=== PATIENT | male | born 1990 | race Caucasian/White ===

== ENCOUNTER 2021-07-18 23:19 | Inpatient (IN) | payer SELFPAY ==
[2021-07-18 23:43] LABS: Analyzer IN Cardio ER; CO2 Tension 36.9 mmHg (35.0-45.0); Calcium, Ionized (arterial) 1.15 mmol/L (1.12-1.30); Carboxyhemoglobin (COHb) 0.5 gm% (0.0-3.0); Potassium - ABG Lab 3.96 mmol/L (3.70-5.30); pH, Arterial 7.35 (7.35-7.45)
[2021-07-18] MEDS ORDERED: Fentanyl 100 MCG/2 ML VIAL ONE (23:44)
[2021-07-18 23:59] LABS: ALV-art Gradient 141.375 mmHg (0-20); Puncture Site RRA
[2021-07-19] MEDS ORDERED: Ondansetron PF 4 MG/2 ML Vial IVP PRN (00:23)
[2021-07-19] MEDS ORDERED: Sodium Chloride 0.9% 1,000 ML IV SCH (00:30)
[2021-07-19] MEDS ORDERED: Propofol 1,000 MG/100 ML VIAL IV ONE (00:39)
[2021-07-19] MEDS ORDERED: Morphine 2 MG/ML VIAL SLOW IVP PRN (00:45)
[2021-07-19] MEDS ORDERED: Fentanyl BOLUS 250 ML IVPB PRN (00:45)
[2021-07-19] MEDS ORDERED: Propofol BOLUS 1,000 MG/100 ML VIAL IV PRN (00:45)
[2021-07-19] MEDS ORDERED: Ventilator Sedation Protocol 1 EACH FS SCH (00:45)
[2021-07-19] MEDS ORDERED: DISCONTINUE PREVIOUS NARCOTIC PAIN MEDICATIONS AND BENZODIAZEPINES FS SCH (00:45)
[2021-07-19 01:01] LABS: Anion Gap 12 mmol/L (10-20); BUN (Urea Nitrogen) 14 mg/dL (8.9-20.6); CK (CPK) 337 U/L (30-200); Calc. Creatinine Clearance 0 mL/min (70-130); Calcium 9.1 mg/dL (7.8-10.44); Carbon Dioxide 28 mmol/L (22-29); Chloride 107 mmol/L (98-107); Magnesium 2.1 mg/dL (1.6-2.6); Potassium 4.1 mmol/L (3.5-5.1); Sodium 143 mmol/L (136-145)
[2021-07-19 01:07] LABS: Glucose 44 mg/dL (70-105)
[2021-07-19] MEDS ORDERED: Dextrose 50% Abboject 50 ML SYRINGE ONE (01:08)
[2021-07-19] MEDS ORDERED: Dextrose 5% in Water 1,000 ML IV PRN (02:03)
[2021-07-19] MEDS ORDERED: Dextrose 50% Abboject 50 ML SYRINGE SLOW IVP PRN (02:03)
[2021-07-19 03:36] LABS: #Lymphocytes 1.1 thou/uL (1.20-3.40); #Monocytes 0.7 thou/uL (0.11-0.59); #Neutrophils 9.1 thou/uL (1.40-6.50); %Basophils 0.1 % (0.0-1.0); %Eosinophils 0.1 % (0.0-10.0); %Lymphocytes 9.6 % (21.0-51.0); %Monocytes 6.7 % (0.0-10.0); %Neutrophils 83.5 % (42.0-75.0); Hemoglobin 13.3 g/dL (14.0-18.0); Mean Corpuscular HGB CONC 33.7 g/dL (32.0-36.0); Mean Corpuscular Hemoglobin 29.2 pg (27.0-31.0); Mean Corpuscular Volume 86.9 fL (78.0-98.0); Mean Platelet Volume 7.8 fL (7.4-10.4); Platelet Count 214 thou/uL (130-400); RBC Distribution Width 12.5 % (11.5-14.5); Red Blood Cell (RBC) Count 4.53 mill/uL (4.70-6.10); White Blood Cell (WBC) Count 10.9 thou/uL (4.8-10.8)
[2021-07-19 03:40] LABS: SARS-CoV-2 NAA Rapid Test Not Detected (NotDetected)
[2021-07-19 03:45] LABS: Hemoglobin A1c 4.9 % (4.0-6.0)
[2021-07-19 03:57] LABS: ALT (SGPT) 72 U/L (8-55); AST (SGOT) 66 U/L (5-34); Alkaline Phosphatase 80 U/L (40-110); Anion Gap 11 mmol/L (10-20); BUN (Urea Nitrogen) 13 mg/dL (8.9-20.6); Bilirubin, Total 0.4 mg/dL (0.2-1.2); Calc. Creatinine Clearance 102 mL/min (70-130); Calcium 8.8 mg/dL (7.8-10.44); Carbon Dioxide 26 mmol/L (22-29); Chloride 107 mmol/L (98-107); Globulin 2.3 g/dL (2.4-3.5); Glucose 115 mg/dL (70-105); Magnesium 1.8 mg/dL (1.6-2.6); Potassium 4.4 mmol/L (3.5-5.1); Protein, Total 6.3 g/dL (6.0-8.3); Sodium 140 mmol/L (136-145)
[2021-07-19] MEDS: Lorazepam 2 MG/ML VIAL SLOW IVP PRN (07:23)
[2021-07-19] MEDS: Propofol 1,000 MG/100 ML VIAL IV PRN ×4 (07:23→22:01)
[2021-07-19] MEDS: Dextrose 5 % And 0.9 % NaCl 1,000 ML IV SCH ×3 (08:12→21:14)
[2021-07-19] MEDS: Enoxaparin Sodium 40 MG/0.4 ML SYRINGE SC SCH (08:51)
[2021-07-19] MEDS: Famotidine 20 MG TAB PO SCH ×2 (08:52→21:15)
[2021-07-19] MEDS ORDERED: Fentanyl CADD 100 ML ONE ×2 (10:15→23:11)
[2021-07-19] MEDS: Fentanyl CADD 100 ML IV SCH ×3 (10:19→23:22)
[2021-07-19 10:58] LABS: Base Excess (BEa) 0.2 mEq/L (-2.0 to +3.0); CO2 Tension 31.6 mmHg (35.0-45.0); Calcium, Ionized (arterial) 1.13 mmol/L (1.12-1.30); Carboxyhemoglobin (COHb) 0.3 gm% (0.0-3.0); Hemoglobin (Hb) 12.2 g/dL (14.0-18.0); O2 Tension (PaO2), arterial 172.5 mmHg (80.0-100.0); Potassium - ABG Lab 3.44 mmol/L (3.70-5.30); pH, Arterial 7.48 (7.35-7.45)
[2021-07-19 10:59] LABS: Puncture Site RRA
[2021-07-19] MEDS: Haloperidol Lactate 5 MG/ML VIAL IM SCH ×4 (14:43→21:14)
[2021-07-20] MEDS: Haloperidol Lactate 5 MG/ML VIAL IM SCH ×4 (00:30→14:48)
[2021-07-20] MEDS: Dextrose 5 % And 0.9 % NaCl 1,000 ML IV SCH ×4 (03:02→16:39)
[2021-07-20] MEDS: Propofol 1,000 MG/100 ML VIAL IV PRN ×3 (03:02→13:12)
[2021-07-20 05:49] LABS: #Eosinphils 0.1 thou/uL (0.0-0.7); #Lymphocytes 0.9 thou/uL (1.20-3.40); #Monocytes 0.5 thou/uL (0.11-0.59); #Neutrophils 4.8 thou/uL (1.40-6.50); %Basophils 0.1 % (0.0-1.0); %Eosinophils 1.4 % (0.0-10.0); %Lymphocytes 14.3 % (21.0-51.0); %Monocytes 7.6 % (0.0-10.0); %Neutrophils 76.6 % (42.0-75.0); Hemoglobin 11.3 g/dL (14.0-18.0); Mean Corpuscular HGB CONC 33.7 g/dL (32.0-36.0); Mean Corpuscular Hemoglobin 29.6 pg (27.0-31.0); Mean Corpuscular Volume 87.7 fL (78.0-98.0); Platelet Count 159 thou/uL (130-400); RBC Distribution Width 12.6 % (11.5-14.5); Red Blood Cell (RBC) Count 3.83 mill/uL (4.70-6.10); White Blood Cell (WBC) Count 6.2 thou/uL (4.8-10.8)
[2021-07-20 05:55] LABS: ALT (SGPT) 47 U/L (8-55); AST (SGOT) 31 U/L (5-34); Albumin 3.1 g/dL (3.5-5.0); Alkaline Phosphatase 63 U/L (40-110); Anion Gap 8 mmol/L (10-20); BUN (Urea Nitrogen) 9 mg/dL (8.9-20.6); Bilirubin, Total 0.6 mg/dL (0.2-1.2); Calc. Creatinine Clearance 113 mL/min (70-130); Calcium 7.9 mg/dL (7.8-10.44); Carbon Dioxide 23 mmol/L (22-29); Chloride 113 mmol/L (98-107); Glucose 116 mg/dL (70-105); Magnesium 1.5 mg/dL (1.6-2.6); Potassium 3.8 mmol/L (3.5-5.1); Protein, Total 5.1 g/dL (6.0-8.3); Sodium 140 mmol/L (136-145)
[2021-07-20] MEDS ORDERED: Dexmedetomidine 1,000 MCG in Sodium Chloride 0.9% 250 ML 240 ML IVPB SCH (07:15)
[2021-07-20] MEDS: Famotidine 20 MG TAB PO SCH ×2 (08:20→21:37)
[2021-07-20] MEDS: Enoxaparin Sodium 40 MG/0.4 ML SYRINGE SC SCH (08:20)
[2021-07-20] MEDS: Acetaminophen 325 MG TAB PO PRN ×2 (08:34→18:27)
[2021-07-20] MEDS ORDERED: Piperacillin/Tazobactam 4.5 GM in Sodium Chloride 0.9% 100 ML IVPB SCH (10:00)
[2021-07-20] MEDS: Vancomycin 1.5 GRAM/300 ML BAG 1.5 GM in Premix Bag 1 BAG IVPB SCH ×2 (10:21→21:37)
[2021-07-20 11:07] LABS: Bacteria/HPF 2+ HPF (None Seen); Bilirubin Negative (Negative); Blood, Urine Negative (Negative); Clarity Turbid (Clear); Glucose, Urine (Dipstick) Normal (Negative); Ketone, Urine Negative (Negative); Leukocyte 250 Leu/uL (Negative); Nitrite Negative (Negative); Protein, Urine (Dipstick) 50 mg/dL (Neg-Trace); RBC/HPF 0-3 HPF (0-3); Specific Gravity, Urine 1.033 (1.002-1.036); Squamous Epithelial None Seen HPF (0-3); Urobilinogen Normal mg/dL (Less than 2); WBC/HPF 21-50 HPF (0-3); pH, Urine 5.5 (5.0-9.0)
[2021-07-20 11:08] LABS: Urine Culture Reflex Yes Yes
[2021-07-20] MEDS ORDERED: Fentanyl CADD 100 ML ONE (13:03)
[2021-07-20] MEDS: Piperacillin/Tazobactam 3.375 GM in Sodium Chloride 0.9% 100 ML IVPB SCH ×2 (13:11→21:36)
[2021-07-20] MEDS: Fentanyl CADD 100 ML IV SCH (13:15)
[2021-07-20] MEDS ORDERED: Sodium Chloride 0.9% 1,000 ML IV SCH (14:00)
[2021-07-20] MEDS ORDERED: Atropine Sulfate 1 mg/10 ml Syringe ONE (15:13)
[2021-07-20] MEDS ORDERED: DOPamine 400 MG/D5W 250 ML 250 ML ONE (15:14)
[2021-07-20] MEDS: Lorazepam 2 MG/ML VIAL SLOW IVP PRN (16:39)
[2021-07-20 16:54] LABS: CKMB 3.6 ng/mL (0-6.6)
[2021-07-20] MEDS ORDERED: DOPamine 400 MG/D5W 250 ML 250 ML IVPB SCH (17:30)
[2021-07-21 04:00] LABS: #Eosinphils 0.1 thou/uL (0.0-0.7); #Lymphocytes 1.3 thou/uL (1.20-3.40); #Monocytes 0.5 thou/uL (0.11-0.59); #Neutrophils 6.3 thou/uL (1.40-6.50); %Basophils 0.1 % (0.0-1.0); %Eosinophils 0.6 % (0.0-10.0); %Lymphocytes 15.5 % (21.0-51.0); %Monocytes 6.6 % (0.0-10.0); %Neutrophils 77.3 % (42.0-75.0); Hemoglobin 11.7 g/dL (14.0-18.0); Mean Corpuscular Hemoglobin 29.6 pg (27.0-31.0); Mean Platelet Volume 7.9 fL (7.4-10.4); Platelet Count 150 thou/uL (130-400); RBC Distribution Width 12.2 % (11.5-14.5); Red Blood Cell (RBC) Count 3.96 mill/uL (4.70-6.10); White Blood Cell (WBC) Count 8.2 thou/uL (4.8-10.8)
[2021-07-21 05:04] LABS: ALT (SGPT) 35 U/L (8-55); AST (SGOT) 25 U/L (5-34); Alkaline Phosphatase 60 U/L (40-110); Anion Gap 11 mmol/L (10-20); BUN (Urea Nitrogen) 8 mg/dL (8.9-20.6); Bilirubin, Total 1.1 mg/dL (0.2-1.2); Calc. Creatinine Clearance 114 mL/min (70-130); Calcium 8.2 mg/dL (7.8-10.44); Carbon Dioxide 22 mmol/L (22-29); Chloride 113 mmol/L (98-107); Globulin 2.3 g/dL (2.4-3.5); Glucose 116 mg/dL (70-105); Magnesium 1.4 mg/dL (1.6-2.6); Potassium 3.7 mmol/L (3.5-5.1); Protein, Total 5.3 g/dL (6.0-8.3); Sodium 142 mmol/L (136-145)
[2021-07-21] MEDS: Piperacillin/Tazobactam 3.375 GM in Sodium Chloride 0.9% 100 ML IVPB SCH ×3 (05:14→22:58)
[2021-07-21] MEDS: Propofol 1,000 MG/100 ML VIAL IV PRN ×2 (07:23→12:23)
[2021-07-21] MEDS: Dextrose 5 % And 0.9 % NaCl 1,000 ML IV SCH ×3 (07:40→14:38)
[2021-07-21] MEDS: Acetaminophen 325 MG TAB PO PRN ×3 (07:45→21:34)
[2021-07-21] MEDS: Enoxaparin Sodium 40 MG/0.4 ML SYRINGE SC SCH (09:12)
[2021-07-21] MEDS: Famotidine 20 MG TAB PO SCH ×2 (09:13→21:35)
[2021-07-21] MEDS: Vancomycin 1.5 GRAM/300 ML BAG 1.5 GM in Premix Bag 1 BAG IVPB SCH ×2 (09:13→21:35)
[2021-07-21] MEDS: Fentanyl CADD 100 ML IV SCH (10:20)
[2021-07-21] MEDS: Midazolam In 0.9 % NaCl/PF 100 ML IVPB SCH (13:55)
[2021-07-21] MEDS: Haloperidol Lactate 5 MG/ML VIAL IM SCH ×3 (14:22→20:05)
[2021-07-21] MEDS: Lorazepam 2 MG/ML VIAL SLOW IVP PRN ×2 (20:04→21:18)
[2021-07-21 20:25] LABS: Vancomycin, Trough 8.3 ug/mL
[2021-07-21] MEDS: Morphine 4 MG/ML VIAL SLOW IVP PRN (22:53)
[2021-07-21] MEDS ORDERED: GUAIFENESIN SF SOLN 200 MG/10 ML UDCUP PO SCH (23:45)
[2021-07-22] MEDS: Haloperidol Lactate 5 MG/ML VIAL IM SCH ×6 (00:04→20:03)
[2021-07-22] MEDS: Lorazepam 2 MG/ML VIAL SLOW IVP PRN ×3 (01:39→14:29)
[2021-07-22] MEDS: Midazolam In 0.9 % NaCl/PF 100 ML IVPB SCH ×2 (02:27→12:31)
[2021-07-22] MEDS: Vancomycin 1.5 GRAM/300 ML BAG 1.5 GM in Premix Bag 1 BAG IVPB SCH ×3 (04:07→21:32)
[2021-07-22] MEDS: GUAIFENESIN SF SOLN 200 MG/10 ML UDCUP PO SCH ×5 (04:07→20:03)
[2021-07-22] MEDS: Acetaminophen 325 MG TAB PO PRN (04:11)
[2021-07-22] MEDS: Piperacillin/Tazobactam 3.375 GM in Sodium Chloride 0.9% 100 ML IVPB SCH ×3 (05:11→22:20)
[2021-07-22] MEDS: Dextrose 5 % And 0.9 % NaCl 1,000 ML IV SCH (06:14)
[2021-07-22 08:47] LABS: Anion Gap 11 mmol/L (10-20); BUN (Urea Nitrogen) 9 mg/dL (8.9-20.6); Calc. Creatinine Clearance 199 mL/min (70-130); Calcium 8.4 mg/dL (7.8-10.44); Carbon Dioxide 20 mmol/L (22-29); Chloride 114 mmol/L (98-107); Glucose 115 mg/dL (70-105); Potassium 3.3 mmol/L (3.5-5.1); Sodium 142 mmol/L (136-145)
[2021-07-22 08:55] LABS: Mean Corpuscular HGB CONC 34.7 g/dL (32.0-36.0); Mean Corpuscular Hemoglobin 29.9 pg (27.0-31.0); Mean Corpuscular Volume 86.2 fL (78.0-98.0); Mean Platelet Volume 8.2 fL (7.4-10.4); Platelet Count 120 thou/uL (130-400); White Blood Cell (WBC) Count 5.2 thou/uL (4.8-10.8)
[2021-07-22] MEDS ORDERED: Furosemide 40 MG/4 ML VIAL SLOW IVP SCH (09:00)
[2021-07-22] MEDS ORDERED: Potassium Bicarbonate/Cit Ac 20 MEQ TAB PER TUBE SCH (09:00)
[2021-07-22] MEDS: Famotidine 20 MG TAB PO SCH ×2 (09:18→20:04)
[2021-07-22] MEDS: Enoxaparin Sodium 40 MG/0.4 ML SYRINGE SC SCH (09:18)
[2021-07-22 09:37] LABS: Band 8 % (5-11); Eosinophils 5 % (0-10); Lymphocytes 15 % (21-51); MDiff Complete? YES; Monocytes 7 % (0-10); Neutrophil 65 % (42-75); Platelet Morphology Comment Appears Decreased; RBC Morphology Normal
[2021-07-22] MEDS: Lorazepam 2 MG/ML VIAL SLOW IVP SCH ×2 (15:00→20:03)
[2021-07-22 20:49] LABS: Vancomycin, Trough 17.5 ug/mL
[2021-07-22] MEDS: Morphine 4 MG/ML VIAL SLOW IVP PRN (23:23)
[2021-07-23] MEDS: GUAIFENESIN SF SOLN 200 MG/10 ML UDCUP PO SCH ×6 (00:40→20:03)
[2021-07-23] MEDS: Haloperidol Lactate 5 MG/ML VIAL IM SCH ×3 (00:41→08:15)
[2021-07-23] MEDS: Midazolam In 0.9 % NaCl/PF 100 ML IVPB SCH ×2 (01:12→15:43)
[2021-07-23] MEDS: Acetaminophen 325 MG TAB PO PRN ×3 (01:23→12:17)
[2021-07-23] MEDS: Lorazepam 2 MG/ML VIAL SLOW IVP SCH ×4 (02:41→20:02)
[2021-07-23 04:02] LABS: Hemoglobin 11.2 g/dL (14.0-18.0); Mean Corpuscular HGB CONC 35.7 g/dL (32.0-36.0); Mean Corpuscular Hemoglobin 30.5 pg (27.0-31.0); Mean Corpuscular Volume 85.5 fL (78.0-98.0); Mean Platelet Volume 8.1 fL (7.4-10.4); Platelet Count 175 thou/uL (130-400); Red Blood Cell (RBC) Count 3.68 mill/uL (4.70-6.10); White Blood Cell (WBC) Count 4.8 thou/uL (4.8-10.8)
[2021-07-23] MEDS: Vancomycin 1.5 GRAM/300 ML BAG 1.5 GM in Premix Bag 1 BAG IVPB SCH ×3 (04:09→21:34)
[2021-07-23 04:16] LABS: Band 8 % (5-11); Eosinophils 6 % (0-10); Lymphocytes 16 % (21-51); MDiff Complete? YES; Monocytes 12 % (0-10); Neutrophil 58 % (42-75)
[2021-07-23 04:23] LABS: Anion Gap 12 mmol/L (10-20); BUN (Urea Nitrogen) 13 mg/dL (8.9-20.6); Calc. Creatinine Clearance 190 mL/min (70-130); Calcium 8.7 mg/dL (7.8-10.44); Carbon Dioxide 24 mmol/L (22-29); Chloride 110 mmol/L (98-107); Glucose 103 mg/dL (70-105); Magnesium 1.9 mg/dL (1.6-2.6); Phosphorus 3.1 mg/dL (2.3-4.7); Potassium 3.1 mmol/L (3.5-5.1); Sodium 143 mmol/L (136-145)
[2021-07-23] MEDS: Morphine 4 MG/ML VIAL SLOW IVP PRN ×5 (04:40→23:00)
[2021-07-23] MEDS: Piperacillin/Tazobactam 3.375 GM in Sodium Chloride 0.9% 100 ML IVPB SCH ×3 (05:45→23:00)
[2021-07-23] MEDS ORDERED: Furosemide 40 MG/4 ML VIAL SLOW IVP SCH (06:00)
[2021-07-23] MEDS ORDERED: Potassium Bicarbonate/Cit Ac 20 MEQ TAB PER TUBE SCH (06:45)
[2021-07-23] MEDS: Enoxaparin Sodium 40 MG/0.4 ML SYRINGE SC SCH (08:13)
[2021-07-23] MEDS: Famotidine 20 MG TAB PO SCH ×2 (08:14→20:03)
[2021-07-23 12:23] VITALS: BMI 31.6
[2021-07-23] MEDS ORDERED: OLANZapine 10 MG VIAL IM PRN (14:07)
[2021-07-23 20:21] LABS: Vancomycin, Trough 15.7 ug/mL
[2021-07-24] MEDS: Morphine 4 MG/ML VIAL SLOW IVP PRN ×6 (00:15→23:19)
[2021-07-24] MEDS: GUAIFENESIN SF SOLN 200 MG/10 ML UDCUP PO SCH ×3 (01:10→08:31)
[2021-07-24] MEDS: Lorazepam 2 MG/ML VIAL SLOW IVP SCH ×4 (02:52→20:25)
[2021-07-24 03:56] LABS: Hemoglobin 11.7 g/dL (14.0-18.0); Mean Corpuscular Hemoglobin 29.5 pg (27.0-31.0); Mean Corpuscular Volume 86.6 fL (78.0-98.0); Mean Platelet Volume 7.3 fL (7.4-10.4); Platelet Count 235 thou/uL (130-400); RBC Distribution Width 12.3 % (11.5-14.5); Red Blood Cell (RBC) Count 3.97 mill/uL (4.70-6.10)
[2021-07-24 04:06] LABS: Band 9 % (5-11); Eosinophils 4 % (0-10); Lymphocytes 22 % (21-51); MDiff Complete? YES; Monocytes 8 % (0-10); Neutrophil 57 % (42-75)
[2021-07-24] MEDS: Vancomycin 1.5 GRAM/300 ML BAG 1.5 GM in Premix Bag 1 BAG IVPB SCH (04:09)
[2021-07-24 04:16] LABS: Anion Gap 10 mmol/L (10-20); BUN (Urea Nitrogen) 16 mg/dL (8.9-20.6); Calc. Creatinine Clearance 183 mL/min (70-130); Calcium 9.1 mg/dL (7.8-10.44); Carbon Dioxide 32 mmol/L (22-29); Chloride 107 mmol/L (98-107); Glucose 118 mg/dL (70-105); Magnesium 2.2 mg/dL (1.6-2.6); Phosphorus 3.4 mg/dL (2.3-4.7); Potassium 3.5 mmol/L (3.5-5.1); Sodium 145 mmol/L (136-145)
[2021-07-24] MEDS: Piperacillin/Tazobactam 3.375 GM in Sodium Chloride 0.9% 100 ML IVPB SCH ×3 (05:06→21:03)
[2021-07-24] MEDS: Midazolam In 0.9 % NaCl/PF 100 ML IVPB SCH ×2 (05:18→22:02)
[2021-07-24] MEDS: Enoxaparin Sodium 40 MG/0.4 ML SYRINGE SC SCH (08:31)
[2021-07-24] MEDS: Famotidine 20 MG TAB PO SCH ×2 (08:31→20:34)
[2021-07-24] MEDS ORDERED: OLANZapine 10 MG VIAL IM SCH ×3 (09:30→21:00)
[2021-07-24] MEDS ORDERED: OLANZapine 5 MG TAB PO SCH ×2 (12:00→21:00)
[2021-07-25] MEDS: Morphine 4 MG/ML VIAL SLOW IVP PRN ×2 (00:20→04:57)
[2021-07-25] MEDS: Lorazepam 2 MG/ML VIAL SLOW IVP SCH ×4 (02:41→21:32)
[2021-07-25 04:35] LABS: Band 7 % (5-11); Eosinophils 2 % (0-10); Hemoglobin 10.6 g/dL (14.0-18.0); Hypochromia SLIGHT = 6-15 cells (100X) (0-5/hpf); Lymphocytes 7 % (21-51); MDiff Complete? YES; Mean Corpuscular HGB CONC 34.8 g/dL (32.0-36.0); Mean Corpuscular Hemoglobin 30.1 pg (27.0-31.0); Mean Corpuscular Volume 86.5 fL (78.0-98.0); Monocytes 11 % (0-10); Neutrophil 73 % (42-75); Platelet Count 263 thou/uL (130-400); Platelet Morphology Comment Appears Adequate; RBC Distribution Width 12.2 % (11.5-14.5); Red Blood Cell (RBC) Count 3.53 mill/uL (4.70-6.10); White Blood Cell (WBC) Count 5.1 thou/uL (4.8-10.8)
[2021-07-25 04:39] LABS: Anion Gap 7 mmol/L (10-20); BUN (Urea Nitrogen) 19 mg/dL (8.9-20.6); Calc. Creatinine Clearance 211 mL/min (70-130); Calcium 8.9 mg/dL (7.8-10.44); Carbon Dioxide 31 mmol/L (22-29); Chloride 109 mmol/L (98-107); Glucose 94 mg/dL (70-105); Magnesium 2.2 mg/dL (1.6-2.6); Phosphorus 3.4 mg/dL (2.3-4.7); Potassium 3.4 mmol/L (3.5-5.1); Sodium 144 mmol/L (136-145)
[2021-07-25] MEDS: Piperacillin/Tazobactam 3.375 GM in Sodium Chloride 0.9% 100 ML IVPB SCH ×3 (05:28→21:31)
[2021-07-25] MEDS ORDERED: Haloperidol Lactate 5 MG/ML VIAL ONE (08:42)
[2021-07-25] MEDS ORDERED: Enoxaparin Sodium 40 MG/0.4 ML SYRINGE ONE (08:43)
[2021-07-25] MEDS ORDERED: Famotidine/PF 20 mg/2ml Vial ONE (08:43)
[2021-07-25] MEDS: Haloperidol Lactate 5 MG/ML VIAL SLOW IVP SCH ×3 (08:51→21:32)
[2021-07-25] MEDS: Enoxaparin Sodium 40 MG/0.4 ML SYRINGE SC SCH (08:52)
[2021-07-25] MEDS: Famotidine 20 MG TAB PO SCH (08:52)
[2021-07-25] MEDS: Famotidine/PF 20 mg/2ml Vial SLOW IVP SCH ×2 (13:26→21:32)
[2021-07-26] MEDS: Lorazepam 2 MG/ML VIAL SLOW IVP SCH ×2 (02:36→10:03)
[2021-07-26] MEDS: Haloperidol Lactate 5 MG/ML VIAL SLOW IVP SCH ×3 (02:39→10:03)
[2021-07-26] MEDS: Piperacillin/Tazobactam 3.375 GM in Sodium Chloride 0.9% 100 ML IVPB SCH (05:27)
[2021-07-26 06:14] LABS: Anion Gap 12 mmol/L (10-20); BUN (Urea Nitrogen) 18 mg/dL (8.9-20.6); Calc. Creatinine Clearance 197 mL/min (70-130); Calcium 9.2 mg/dL (7.8-10.44); Carbon Dioxide 26 mmol/L (22-29); Chloride 111 mmol/L (98-107); Glucose 91 mg/dL (70-105); Magnesium 2.2 mg/dL (1.6-2.6); Phosphorus 3.4 mg/dL (2.3-4.7); Potassium 3.7 mmol/L (3.5-5.1); Sodium 145 mmol/L (136-145)
[2021-07-26 06:53] LABS: Hemoglobin 11.1 g/dL (14.0-18.0); Mean Corpuscular HGB CONC 35.7 g/dL (32.0-36.0); Mean Corpuscular Hemoglobin 30.4 pg (27.0-31.0); Mean Corpuscular Volume 85.1 fL (78.0-98.0); Mean Platelet Volume 6.9 fL (7.4-10.4); Platelet Count 281 thou/uL (130-400); RBC Distribution Width 11.9 % (11.5-14.5); Red Blood Cell (RBC) Count 3.66 mill/uL (4.70-6.10); White Blood Cell (WBC) Count 6.3 thou/uL (4.8-10.8)
[2021-07-26 07:42] LABS: Band 1 % (5-11); Eosinophils 3 % (0-10); Lymphocytes 14 % (21-51); MDiff Complete? YES; Monocytes 15 % (0-10); Neutrophil 67 % (42-75); Platelet Morphology Comment Appears Adequate
[2021-07-26] MEDS: Famotidine/PF 20 mg/2ml Vial SLOW IVP SCH (09:00)
[2021-07-26] MEDS: Enoxaparin Sodium 40 MG/0.4 ML SYRINGE SC SCH (09:00)
[2021-07-26 09:38] VITALS: BP 134/77; TEMP 98.7
[2021-07-26 16:28] LABS: SARS-CoV-2 PCR by NAA Not Detected (NotDetected)
== END 2021-07-26 10:23 | disposition left against medical advice (07) | DRG 207 ==
LOC: ERS 23:19 → CCU 23:44 → 2NO 07-25 21:01
PROVIDERS: ADMIT Internal Medicine; ATTEND Internal Medicine
PROC: 0BH17EZ Insertion of Endotracheal Airway into Trachea, Via Natural or Artificial Opening (ICD-10-PCS; principal; 2021-07-19)
PROC: 5A1955Z Respiratory Ventilation, Greater than 96 Consecutive Hours (ICD-10-PCS; 2021-07-19)
DX: J96.01 Acute respiratory failure with hypoxia (principal); J15.1 Pneumonia due to Pseudomonas; G92.8 Other toxic encephalopathy; N17.9 Acute kidney failure, unspecified; J81.1 Chronic pulmonary edema; E87.2 Acidosis; T43.621A Poisoning by amphetamines, accidental (unintentional), initial encounter; Z20.822 Contact with and (suspected) exposure to COVID-19; I45.5 Other specified heart block; R00.1 Bradycardia, unspecified; E87.70 Fluid overload, unspecified; E87.6 Hypokalemia; N18.9 Chronic kidney disease, unspecified; E88.09 Other disorders of plasma-protein metabolism, not elsewhere classified; T50.995A Adverse effect of other drugs, medicaments and biological substances, initial encounter; R73.9 Hyperglycemia, unspecified; F32.A Depression, unspecified; R94.31 Abnormal electrocardiogram [ECG] [EKG]; F15.10 Other stimulant abuse, uncomplicated; Z78.1 Physical restraint status
CPT/HCPCS: 31500; 36415; 36416; 36600; 51702; 70450; 71045; 80048; 80053; 80202; 81001; 82550; 82553; 82805; 83036; 83735; 83880; 84100; 84443; 84484; 85007; 85025; 85027; 87040; 87070; 87077; 87086; 87149; 87186; 87205; 93005; 93010; 93306; 94002; 94003; 95816; 95819; 96365; 96366; 96374; 96376; 99292; J0461; J1265; J1630; J1650; J1940; J2060; J2270; J2543; J2704; J3010; J3370; J3490; J7042; J7050; S0028; U0002; U0003; U0005